=== PATIENT | female | born 1970 | race Caucasian/White ===

== ENCOUNTER 2022-04-05 12:33 | Emergency (ER) | payer MEDICAID ==
[~2022-04-05] VITALS: Ht 160 cm; Wt 88.0 kg
[2022-04-05] MEDS ORDERED: NAPR-681 PO (15:02)
[2022-04-05] MEDS ORDERED: SULF1TAB48 PO (15:02)
[2022-04-05] MEDS ORDERED: CETI10CA11 PO (15:02)
[2022-04-05] MEDS ORDERED: CEPH500C2 PO (15:02)
[2022-04-05 15:35] VITALS: BP 154/86
== END 2022-04-05 15:36 | disposition home or self-care (01) ==
LOC: ER 12:47
DX: L03.116 Cellulitis of left lower limb (principal); L03.115 Cellulitis of right lower limb; R60.9 Edema, unspecified
CPT/HCPCS: 99283

== ENCOUNTER 2022-04-08 13:27 | Emergency (ER) | payer MEDICAID ==
[~2022-04-08] VITALS: Ht 165.1 cm; Wt 91.0 kg
[~2022-04-08 13:27] MED LIST: CEPH500C2 PO; CETI10CA11 PO; NAPR-681 PO; SULF1TAB48 PO
[2022-04-08 13:34] VITALS: BP 156/94
[2022-04-08] MEDS ORDERED: KETOROLAC 30MG/ML VIAL IV STA (15:07)
[2022-04-08] MEDS ORDERED: SODIUM CHLORIDE 0.9% 1,000 ML IV ONE (15:15)
[2022-04-08] MEDS ORDERED: KETOROLAC 15MG/ML VIAL IM ONE (15:45)
[2022-04-08 16:02] LABS: BASOPHILS % 0.7 % (0.0-2.0); EOSINOPHILS % 9.1 % (0.0-5.0); HEMATOCRIT. 41.9 % (36.0-48.0); LYMPHOCYTES % 23.9 % (20.0-50.0); MEAN CORPUSCULAR HEMOGLOBIN 29.6 pg (28.0-32.0); MEAN CORPUSCULAR VOLUME 88.5 fL (81.0-99.0); MEAN PLATELET VOLUME 6.3 fl (7.4-10.4); MONOCYTES % 7.2 % (2.0-8.0); NEUTROPHILS % 59.1 % (40.0-76.0); PLATELET 330 x1000/uL (130-400); RED BLOOD CELL COUNT 4.73 mill/uL (4.2-5.4); RED CELL DISTRIBUTION WIDTH 13.2 % (11.6-14.6)
[2022-04-08 16:12] LABS: PROTHROMBIN TIME 10.5 sec (9.6-11.0)
[2022-04-08 16:17] LABS: CHLORIDE 106 mEq/L (98-107)
[2022-04-08] MEDS ORDERED: HYDR453.3 TP (18:10)
== END 2022-04-08 18:28 | disposition home or self-care (01) ==
LOC: ER 13:27
DX: L03.116 Cellulitis of left lower limb (principal)
CPT/HCPCS: 36415; 80053; 85025; 85610; 86850; 86900; 86901; 96372; 99283; J1885; J7030

== ENCOUNTER 2022-09-25 03:13 | Emergency (ER) | payer MEDICAID, OTHER ==
[~2022-09-25] VITALS: Ht 160 cm; Wt 95.2 kg
[~2022-09-25 03:13] MED LIST changes: +HYDR453.3 TP
[2022-09-25 05:33] LABS: BASOPHILS % 0.9 % (0.0-2.0); EOSINOPHILS % 2.3 % (0.0-5.0); HEMATOCRIT. 35.7 % (36.0-48.0); HEMOGLOBIN. 12.7 g/dL (12.0-16.0); LYMPHOCYTES % 22.5 % (20.0-50.0); MEAN CORPUSCULAR HEMOGLOBIN 30.9 pg (28.0-32.0); MEAN CORPUSCULAR VOLUME 86.9 fL (81.0-99.0); MONOCYTES % 7.1 % (2.0-8.0); NEUTROPHILS % 67.2 % (40.0-76.0); PLATELET 335 x1000/uL (130-400); RED BLOOD CELL COUNT 4.11 mill/uL (4.2-5.4); RED CELL DISTRIBUTION WIDTH 13.3 % (11.6-14.6)
[2022-09-25 05:38] LABS: CHLORIDE 106 mEq/L (98-107)
[2022-09-25] MEDS ORDERED: ACETAMINOPHEN WITH CODEINE 300/30MG TABLET PO ONE (07:00)
[2022-09-25] MEDS ORDERED: POTASSIUM CHLORIDE 20MEQ TABLET SR PO ONE (08:30)
[2022-09-25 08:50] VITALS: BP 121/70
== END 2022-09-25 08:51 | disposition home or self-care (01) ==
LOC: ER 03:13
DX: R07.89 Other chest pain (principal); I10 Essential (primary) hypertension
CPT/HCPCS: 36415; 71045; 80053; 83880; 84484; 85025; 93005; 99285

== ENCOUNTER → 2025-02-01 | Day surgery (SDC) | payer MEDICAID ==
[~2025-02-01] VITALS: Ht 165.1 cm; Wt 103.4 kg
[~2025-02-01] MED LIST changes: +AMLO2.5T45 PO; +ATOR40TA70 PO; +BUPIVACAINE HCL/PF 0.5% (5MG/ML) 10ML ONE; +CHLO25TA2 PO; +FENTANYL CITRATE/PF 50MCG/ML 2ML VIAL ONE; +GLYCOPYRROLATE 0.2 MG/ML 2ML VIAL IV PRN; +GLYCOPYRROLATE 0.2 MG/ML 2ML VIAL ONE; +HYDRALAZINE 20MG/ML VIAL IV PRN; +HYDRALAZINE 20MG/ML VIAL ONE; +HYDROMORPHONE HCL/PF 1MG/ML INJ IV PRN; +HYDROMORPHONE HCL/PF 1MG/ML INJ ONE; +LABETALOL 5MG/ML 4ML INJ IV PRN; +MAGN400T39 PO; +NEOSTIGMINE METHYLSULFATE 1MG/ML 10 ML VIAL ONE; +ROCURONIUM BROMIDE 10MG/ML VIAL 5ML IV ONE; +SKIN ADHESIVE 0.7 GM EA TOP ONE
[2025-02-01] MEDS: LACTATED RINGERS 1,000 ML IV SCH (09:14)
[2025-02-01] MEDS: HYDROMORPHONE HCL/PF 1MG/ML INJ IV PRN (11:37)
[2025-02-01 12:28] VITALS: PULSE 74; RESP 28; O2SAT 94
[2025-02-01] MEDS: IPRATROPIUM/ALBUTEROL 0.5-3(2.5)MG/3ML NEB HHN NR (12:28)
[2025-02-01 12:55] VITALS: BP 111/66; PULSE 70; RESP 14; O2SAT 95
[2025-02-01] MEDS: MIDAZOLAM HCL 2 MG/2 ML VIAL IV SCH (12:55)
[2025-02-01] MEDS: DEXAMETHASONE 10 MG/ML VIAL IV SCH (12:58)
[2025-02-01] MEDS: ONDANSETRON HCL 4MG/2ML INJ IV PRN (14:44)
== END | disposition home or self-care (01) ==
LOC: OR 07:32
PROVIDERS: ATTEND Surgery
DX: K80.10 Calculus of gallbladder with chronic cholecystitis without obstruction (principal); I10 Essential (primary) hypertension; E78.5 Hyperlipidemia, unspecified; M19.90 Unspecified osteoarthritis, unspecified site; E66.9 Obesity, unspecified; Z68.37 Body mass index [BMI] 37.0-37.9, adult; Z79.899 Other long term (current) drug therapy; Z98.890 Other specified postprocedural states
CPT/HCPCS: 47562; 88304; 71045; 94640; J3010; J0665; J1100; J3490 ×2; J0360; J2250; J2405; J1171; J7030; J2710